=== PATIENT | female | born 1995 | race Asian ===

== ENCOUNTER 2020-06-18 08:26 | Emergency (ER) | payer OTHER ==
[~2020-06-18] VITALS: Ht 170.2 cm; Wt 47.6 kg
--- NOTE | 2020-06-18 08:32 | NUR ---
PT [id number] FOUND UNRESPONSIVE BY BF. NARCAN GIVEN INTRANASAL AND IV. VS CHECKED. PT TACHYPNEIC. VS CHECKED. SEEN BY DR. MARCUM
--- NOTE | 2020-06-18 08:45 | NUR ---
BLOOD DRAWN FROM THE LINE, AND SENT TO LAB.
--- NOTE | 2020-06-18 08:50 | NUR ---
PATIENT PLACED ON A BEDPAN, PATIENT GAVE A URINE SAMPLE AND SENT TO LAB.
[2020-06-18 08:56] LABS: BILIRUBIN,URINE Negative (NEGATIVE); BLOOD, URINE Small Ery/uL (NEGATIVE); COLOR,URINE YELLOW (YELLOW); LEUKOCYTE ESTERASE ,URINE Small (NEGATIVE); NITRITE, URINE Negative (NEGATIVE); PROTEIN,URINE Negative (NEGATIVE); UGLUCOSE 100 MG/DL mg/dL (NEGATIVE); UROBILINOGEN,URINE 0.2 EU/dL (0.2)
[2020-06-18 08:57] LABS: BASOPHILS % (AUTO) 0.5 % (0.0-2.0); CALCIUM, SERUM 8.1 mg/dL (8.5-10.1); CARBON DIOXIDE 28 mmol/L (21-32); CHLORIDE 99 mmol/L (98-107); EOSINOPHILS % (AUTO) 8.8 % (0.0-6.0); GLUCOSE 211 mg/dL (74-106); HEMATOCRIT 37 % (33-45); HEMOGLOBIN 12.1 g/dL (11.5-14.8); LYMPHOCYTES # (AUTO) 2.3 /CMM (0.8-4.8); LYMPHOCYTES % (AUTO) 42.7 % (20.0-44.0); MEAN CORPUSCULAR HGB CONC 33 g/dl (31.0-36.0); MEAN CORPUSCULAR VOLUME 106 fL (82-100); MONOCYTES # (AUTO) 0.3 /CMM (0.1-1.30); MONOCYTES % (AUTO) 4.8 % (2.0-12.0); NEUTROPHILS # (AUTO) 2.3 /CMM (1.8-8.9); NEUTROPHILS % (AUTO) 43.2 % (43.0-81.0); PLATELET COUNT (AUTO) 326 /CMM (150-450); POTASSIUM 4.3 mmol/L (3.5-5.1); RED BLOOD CELL COUNT(AUTO) 3.46 MIL/uL (4.0-5.2); SODIUM SERUM 136 mmol/L (136-145); UREA NITROGEN, BLOOD 7 mg/dL (7-18); WHITE BLOOD COUNT (AUTO) 5.3 K/uL (4.3-11.0)
[2020-06-18] MEDS ORDERED: IV NS 0.9% 1,000 ML BAG IV ONE (09:00)
[2020-06-18 09:03] LABS: ACETAMINOPHEN 0 ug/ml (10-30); ALANINE AMINOTRANSFERASE 33 U/L (12-78); ALBUMIN 3.7 g/dL (3.4-5.0); ALCOHOL, BLOOD < 3 mg/dL (0-0); ALKALINE PHOSPHATASE 46 U/L (46-116); ASPARTATE AMINOTRANSFERASE 27 U/L (15-37); BILIRUBIN,DIRECT 0.2 mg/dL (0.0-0.2); BILIRUBIN,TOTAL 0.3 mg/dL (0.2-1.0); TOTAL PROTEIN, SERUM 7.4 g/dL (6.4-8.2)
[2020-06-18 09:06] LABS: BACTERIA,URINE Few /HPF (None Seen)
[2020-06-18 09:07] LABS: SQUAMOUS EPITHELIAL CELL,UR Few /HPF (None Seen)
--- NOTE | 2020-06-18 09:46 | NUR ---
CLAUDIA [phone].
--- NOTE | 2020-06-18 09:57 | NUR ---
david laguerrew called for eval
[2020-06-18 10:42] LABS: EOSINOPHILS % (MANUAL) 2 % (0-4); LYMPHOCYTES % (MANUAL) 47 % (16-48); MONOCYTES % (MANUAL) 4 % (0-11.0); NEUTROPHILS % (MANUAL) 42 (42-76)
--- NOTE | 2020-06-18 11:56 | NUR ---
LAURI AT BEDSIDE FOR CONSULT.
--- NOTE | 2020-06-18 12:37 | NUR ---
COVID SWAB DONE SENT TO LAB
--- NOTE | 2020-06-18 12:59 | NUR ---
Reverse Logistics Analyst consult requested by ED RN Joseph. Patient is a 24-year-old female. Patient presented to [facility] ED for accidental overdose. Patient is alert and oriented x4. Patient was receptive to meeting with this SW. Patient currently reports being a student and living with her boyfriend. Patient reported to this SW that she does not have a memory of anything after she went to bed last night. Patient reports that she has had a hard time sleeping due to her prescription for Adderall. Patient reports during this last week that she has had a difficult week and patient reports that she has been diagnosed with Anxiety and Depression since she was 16 years old. Patient also reports a familial history of schizophrenia. Patient reports that she was in rehabilitation this past September and January. Patient reports that she regularly uses Cocaine, Benzodiazepines, Adderall, and Methamphetamine. Patient reported that she stopped using opioids approximately 2 weeks ago. Patient reports that she socially drinks alcohol and reports 2 times within the last month. Patient reported that she smokes cigarettes off and on for over a year now. Patient currently denies suicidal and homicidal ideation. Patient denies visual and auditory hallucinations. SW and patient discussed voluntary psychiatric treatment. Patient was agreeable to voluntary treatment. Plan: SW to refer the patient to [facility] (phone). SW will fax clinicals to [facility] (fax).
--- NOTE | 2020-06-18 13:13 | NUR ---
LAB CALLED AND PT IS NEG FOR COVID
--- NOTE | 2020-06-18 13:39 | NUR ---
patient's refusing to go to a psychiatric hospital, denies SI/HI at this time. Nik made aware, per Nik she will call asset protection professional for evaluation.
--- NOTE | 2020-06-18 13:58 | NUR ---
CLAUDIA SAUCEDO CALLED AND LEFT CONTACT # [phone]
--- NOTE | 2020-06-18 14:20 | NUR ---
АНДРЕЙ RAMOS AT BEDSIDE FOR PSYCH EVAL
--- NOTE | 2020-06-18 15:26 | NUR ---
Patient discharged to home in stable condition. Written and verbal after care instructions given. Patient verbalizes understanding of instruction.IV removed. Catheter intact and site benign. Pressure and 4x4 applied to site. No bleeding noted. Pt ambulatory with a steady gait
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
[2020-06-18 15:27] VITALS: BP 108/57
== END 2020-06-18 15:27 | disposition home or self-care (01) ==
LOC: ER 08:28
DX: T40.2X1A Poisoning by other opioids, accidental (unintentional), initial encounter (principal); Y92.019 Unspecified place in single-family (private) house as the place of occurrence of the external cause; R40.4 Transient alteration of awareness; F19.10 Other psychoactive substance abuse, uncomplicated; Z20.828 Contact with and (suspected) exposure to other viral communicable diseases
CPT/HCPCS: 36415; 80048; 80076; 80299; 80307; 80320; 81001; 82962; 84703; 85007; 85025; 87086; 87426; 96360; 99285; C9803; J7030; G0480